=== PATIENT | male | born 1990 | race Two or more races ===

== ENCOUNTER → 2017-07-15 | Outpatient (CLI) | payer OTHER ==
[~2017-07-15] MED LIST: MULT-516 PO
== END ==
LOC: STAR 12:40
PROVIDERS: ATTEND Otolaryngology
DX: Z02.9 Encounter for administrative examinations, unspecified (principal)

== ENCOUNTER 2017-07-22 12:58 | Day surgery (SDC) | payer OTHER ==
[~2017-07-22] VITALS: Ht 188 cm; Wt 92.0 kg
[2017-07-22] MEDS ORDERED: LACTATED RINGERS 1,000 ML IV SCH (13:32)
[2017-07-22 13:33] VITALS: BP 102/62
[2017-07-22] MEDS ORDERED: OXYMETAZOLINE NASAL SPRAY 0.05%, 15ML ONE (14:49)
[2017-07-22] MEDS ORDERED: MIDAZOLAM 1 MG/ML, 2ML ONE (14:55)
[2017-07-22] MEDS ORDERED: FENTANYL PF 250 MCG/5ML ONE (14:55)
[2017-07-22] MEDS ORDERED: PROPOFOL 10 MG/ML, 20ML ONE (14:57)
[2017-07-22] MEDS ORDERED: ROCURONIUM 10 MG/ML,10ML ONE (14:57)
[2017-07-22] MEDS ORDERED: SODIUM CHLORIDE 0.9% PF 10ML ONE (14:58)
[2017-07-22] MEDS ORDERED: CEFAZOLIN 1,000 MG ONE ×2 (14:58)
[2017-07-22] MEDS ORDERED: NEOSTIGMINE 1 MG/ML, 10ML ONE (15:00)
[2017-07-22] MEDS ORDERED: GLYCOPYRROLATE 0.4 MG/2 ML, 2ML ONE (15:00)
[2017-07-22] MEDS ORDERED: DEXAMETHASONE 4 MG/ML, 5ML ONE (15:06)
[2017-07-22] MEDS ORDERED: ACETAMINOPHEN 325 MG TABLET PO PRN (15:30)
[2017-07-22] MEDS ORDERED: ONDANSETRON 2MG/ML, 2ML IVPush PRN (15:30)
[2017-07-22] MEDS ORDERED: OXYcodone 5 MG/5 ML ORAL.SOL UDC PO PRN (15:30)
[2017-07-22] MEDS ORDERED: PROMETHAZINE 25 MG/ML, 1ML IV PRN (15:30)
[2017-07-22] MEDS ORDERED: MEPERIDINE/PF 25MG/0.5ML IVPush PRN (15:30)
[2017-07-22] MEDS ORDERED: OXYcodone 5 MG/5 ML ORAL.SOL UDC ONE (15:38)
[2017-07-22] MEDS ORDERED: ACETAMINOPHEN 650 MG/20.3 ML UDC ONE (15:38)
[2017-07-22] MEDS ORDERED: FENTANYL PF 100 MCG/2ML ONE (15:38)
[2017-07-22] MEDS: FENTANYL PF 100 MCG/2ML IV PRN ×2 (15:45→15:56)
[2017-07-22] MEDS ORDERED: HYDROmorphone 2 MG/ML, 1ML ONE (15:57)
[2017-07-22] MEDS ORDERED: MEPERIDINE/PF 50 MG/ML ONE (15:59)
[2017-07-22] MEDS: HYDROmorphone 1 MG/ML, 1ML IV PRN ×2 (16:02→16:09)
[2017-07-22] MEDS ORDERED: ONDANSETRON ODT 4 MG ONE (17:11)
[2017-07-22] MEDS ORDERED: ONDANSETRON ODT 4 MG PO ONE (17:30)
== END 2017-07-22 18:07 ==
LOC: OUT 12:58
PROVIDERS: ATTEND Otolaryngology
DX: J35.01 Chronic tonsillitis (principal)
CPT/HCPCS: 42821; 88304; J1100; J1170; J2175; J2250; J2704; J2710; J3010; J7120; Q0162; J0690

== ENCOUNTER → 2018-04-12 | Outpatient (CLI) | payer OTHER ==
[2018-04-12 08:59] LABS: BASOPHILS # (AUTO) 0.03 x10^3/uL (0-0.1); BASOPHILS % (AUTO) 1 % (0-1); EOSINOPHILS # (AUTO) 0.08 x10^3/uL (0-0.4); EOSINOPHILS % (AUTO) 2 % (1-7); LYMPHOCYTES # (AUTO) 2.04 x10^3/uL (1-3.4); LYMPHOCYTES % (AUTO) 42 % (22-44); MD NO; MEAN CORPUSCULAR HEMOGLOBIN 31.4 pg (27.5-34.5); MEAN CORPUSCULAR VOLUME 92.4 fL (81-97); MEAN PLATELET VOLUME 9.5 fL (7.4-10.4); MONOCYTES # (AUTO) 0.51 x10^3/uL (0.2-0.8); MONOCYTES % (AUTO) 11 % (2-9); NEUTROPHILS # (AUTO) 2.22 x10^3/uL (1.8-6.8); NEUTROPHILS % (AUTO) 45 % (42-75); PLATELET COUNT 202 x10^3/uL (130-400); RED BLOOD COUNT 5.03 x10^6/uL (4.38-5.82); RED CELL DISTRIBUTION WIDTH 14.3 % (9.4-14.8)
[2018-04-12 09:08] LABS: ALANINE AMINOTRANSFERASE 42 U/L (12-78); CALCIUM 8.3 mg/dL (8.5-10.1); CHLORIDE 107 mmol/L (98-107); CHOLESTEROL, TOTAL 196 mg/dL (140-239); CREATININE 1.19 mg/dL (0.7-1.3)
[2018-04-12 09:18] LABS: ALKALINE PHOSPHATASE 62 U/L (45-117); ANION GAP 6 mmol/L (5-15); BILIRUBIN,TOTAL 0.7 mg/dL (0.2-1.0); CHOL/HDL RATIO 2.3; HDL CHOL % 44 % (26-37); HDL CHOLESTEROL (DIRECT) 87 mg/dL (40-60); LDL CHOLESTEROL,CALCULATED 102 mg/dL (54-169); LDL/HDL RATIO 1.2 (0.5-3.0); TOTAL PROTEIN 7.3 g/dL (6.4-8.2); TRIGLYCERIDES 37 mg/dL (50-200); VLDL CHOLESTEROL 7 mg/dL (0-25)
== END | disposition home or self-care (01) ==
LOC: LAB 08:17
PROVIDERS: ATTEND Physician Assistant
DX: Z12.11 Encounter for screening for malignant neoplasm of colon (principal); Z12.5 Encounter for screening for malignant neoplasm of prostate; Z13.220 Encounter for screening for lipoid disorders; J35.9 Chronic disease of tonsils and adenoids, unspecified; E55.9 Vitamin D deficiency, unspecified; E16.2 Hypoglycemia, unspecified; R53.83 Other fatigue
CPT/HCPCS: 36415; 80053; 80061; 82306; 84443; 85025